=== PATIENT | male | born 1960 | race Caucasian/White ===

== ENCOUNTER 2025-06-10 20:00 | Emergency (ER) | payer BC ==
[~2025-06-10] VITALS: Ht 170.2 cm; Wt 79.9 kg
--- NOTE | 2025-06-10 20:34 | Physician Documentation ---
History of Present Illness ~ Chief Complaint: Toe pain Stated Complaint: R TOE PAIN Time Seen by MD: 20:23 HPI 65-year-old male presents to the ED after accidentally dropping a piano on his right toes causing injury. He states it was not a full-size piano and on but it was quite heavy and he now has moderate to severe pain in his 1st two toes on the right side Day of Onset: Jun 10, 2025 Medication Reconciliation Allergies: Coded Allergies: No Known Allergies (Unverified , 06/10/25) Scheduled Sulfamethoxazole/Trimethoprim (Septra Ds Tab), 1 TAB PO Q12H Scheduled PRN Hydrocodone Bit/Acetaminophen 5/325 MG (Naylor 5/325 MG), 1 TAB PO Q6H PRN for pain Review of Systems All Other Systems at this time: Reviewed and Negative ROS As stated above in the HPI, otherwise all systems are reviewed and negative. Physical Exam Vital Signs: Temperature: 97.5, Source: Temporal, Heart Rate: 70, Respiratory Rate: 16, BP: 126/94, Pulse Oximetry: 96, Weight: 79.900 Physical Exam General: Alert, no apparent distress. HEENT: PERRL, EOMI, no injection, moist mucous membranes. Extremities: Notable deformity in the right great toe, partially ambutated with deep laceration just proximal to nail bed Neurologic: Oriented x4. Psychiatric: Normal mood and affect. Skin: Normal color, warm and dry. No edema, no ecchymosis. Procedures Laceration Repair : Anesthesia: Lidocaine Prep: irrigated by nurse Undermining: none Suture Size/Type: 3-0, ethilon Number of Superficial Sutures: 20 Dressing Applied: non-adherent Tolerated Procedure Well?: yes, no complications Progress Results/Orders Results/Orders Orders - KEKE ARENAS FLEET TECHNICIAN Toe(S) (06/10/25 20:38) Laceration/I&D Tray Set Up (06/10/25 ) Completed Orders - KEKE ARENAS FLEET TECHNICIAN Toe(S) (06/10/25 20:38) Lidocaine 1% 30ml Vial (Xylocaine 1% Via (06/10/25 20:40) Hydrocodone/Apap 10/325 (Naylor 10/325mg (06/10/25 22:25) Hydrocodone/Apap 10/325 (Naylor 10/325mg (06/10/25 22:40) Medications Received in ER Medications (Trade) Dose Ordered Sig/Carrie Route PRN Reason Start Time Stop Time Status Last Admin Dose Admin (Xylocaine 1% vial) ONCE STAT SQ 06/10/25 20:40 06/10/25 20:41 DC 06/10/25 21:13 10 ML Vital Signs 06/10/25 06/10/25 06/10/25 06/10/25 20:10 20:32 21:14 22:26 Temp 97.5 97.5 97.5 Pulse 70 62 56 Resp 16 16 16 B/P (MAP) 126/94 147/69 (95) 144/90 Pulse Ox 96 94 97 O2 Flow Rate 0 Medical Decision Making Additional information obtaine: old records, N/A Findings This patient is right great toe was partially amputated from the piano crushing down on it. took notable effort to approximate the laceration and deformity. Ultimately, I was able to mostly reduced the great toe fracture and approximate the nail bed to the proximal aspect of he right great toe. It is questionable whether or not some of the tissue may slough off during the healing process secondary to poor perfusion prior to repair I will place the patient on antibiotics and sent him home with pain medication was advised to follow up with [facility] soon as possible General Diff Dx:Considerations: Include: Abrasion, Contusion, Fracture, Hematoma, Laceration, Malunion, Neurovascular injury, Open fracture, Sprain, Ulcer, Other Knee Diff Dx:Considerations: Unlikely: Abrasion, Arthritis, Contusion, DJD, Fracture-femur, Fracture-fibula, Fracture-patella, Fracture-tibia, Gout, Hematoma, Laceration, Meniscus injury, Neurovascular injury, Open fracture, Rheumatoid arthritis, Septic, Sprain, Sprain-MCL, Sprain-LCL, Sprain-ACL, Sprain-PCL, Other Ankle Diff Dx:Considerations: Unlikely: Abrasion, Arthritis, Contusion, DJD, Fracture-metatarsal, Fracture-fibula, Fracture-tarsal, Fracture-tibia, Gout, Hematoma, Laceration, Malunion, Neurovascular injury, Nonunion, Open fracture, Osteomyelitis, Rheumatoid arthritis, Sprain, Septic, Ulcer, Other Foot Diff Dx:Considerations: Unlikely: Abrasion, Arthritis, Cellulitis, Contusion, Dislocation, DJD, Fracture-metatarsal, Fracture-phalynx, Fracture- tarsal, Gout, Hematoma, Ingrown toenail, Laceration, Malunion, Neurovascular injury, Open fracture, Paronychia, Puncture, Rheumatoid, Sprain, Septic, Subungual hematoma, Ulcer, Other Toe Diff Dx:Considerations: Include: Abrasion, Cellulitis, Contusion, Dislocation, Felon, Fracture, Hematoma, Laceration, Neurovascular injury, Open fracture, Paronychia, Subungual hematoma, Other Departure Disposition: 01 HOME / SELF CARE / HOMELESS Impression: Primary Impression: Toe swelling Additional Impression: Partial traumatic amputation of great toe Condition: Stable Discharge Instructions: Toe Fracture, [id number] Additional Instructions: Discussed you should had her sutures removed in 8-10 days from now. Keep the area clean dry intact all of your antibiotics make sure to follow up with [facility] for further evaluation. Referrals: NO PRIMARY CARE PROVIDER (PCP) [facility] Prescriptions Hydrocodone Bit/Acetaminophen 5/325 MG (Naylor 5/325 MG) 5 Mg/325 Mg Tablet 1 TAB PO Q6H PRN for pain, #14 TAB Prov: KEKE ARENAS NP 06/10/25 Sulfamethoxazole/Trimethoprim (Septra Ds Tab) 800 Mg/160 Mg Tablet 1 TAB PO Q12H for 10 Days, #20 TAB Prov: KEKE ARENAS NP 06/10/25 Signature Scribe Signature: mabel Attestation: Scribed for Keke Arenas [employer] Press Operator by Keke Nelson NP . 06/10/25 22:19 KEKE ARENAS NP Jun 10, 2025 20:34
--- NOTE | 2025-06-10 21:01 | RADIOLOGY REPORT ---
CLINICAL INDICATION: injury RIGHT TECHNIQUE: 4 views DI TOE(S) Comparison: None FINDINGS: Significantly comminuted, moderately displaced and angulated fracture involving a majority of the 1st distal phalanx without definite intra-articular extension. Large associated soft tissue swelling with medial/distal laceration and soft tissue gas. No dislocation or additional identified fracture. Mild polyarticular osteoarthrosis. IMPRESSION: 1. Comminuted open fracture of the right 1st toe distal phalanx.
[2025-06-10] MEDS: LIDOcaine 1% 30ml preserv. free vial SQ STA (21:13)
[2025-06-10 22:26] VITALS: BP 144/90; PULSE 56; RESP 16; TEMP 97.5; O2SAT 97
[2025-06-10] MEDS ORDERED: SULF-16 PO (22:26)
[2025-06-10] MEDS ORDERED: HYDR-3965 PO ×2 (22:26→23:50)
[2025-06-10] MEDS ORDERED: HYDROcodone/acetaminophen 10/325mg tab PO ONE (22:40)
[2025-06-10] MEDS: HYDROcodone/acetaminophen 10/325mg tab PO ONE (22:58)
== END 2025-06-10 22:58 | disposition home or self-care (01) ==
LOC: ER 20:01
DX: S92.421B Displaced fracture of distal phalanx of right great toe, initial encounter for open fracture (principal); Z89.411 Acquired absence of right great toe; Z79.899 Other long term (current) drug therapy; X58.XXXA Exposure to other specified factors, initial encounter; Y93.89 Activity, other specified; Y92.89 Other specified places as the place of occurrence of the external cause; Y99.8 Other external cause status
CPT/HCPCS: 28515; 73660; 99284; J2003; J7030; A6258; A6449